=== PATIENT | male | born 1965 | race African-American/Black ===

== ENCOUNTER 2019-07-18 01:55 | Emergency (ER) | payer MEDICAID ==
[~2019-07-18] VITALS: Ht 180.3 cm; Wt 105.0 kg
[2019-07-18] MEDS ORDERED: ACETAMINOPHEN 325MG TABLET PO STA (03:07)
[2019-07-18 03:37] LABS: CLARITY URINE CLEAR (CLEAR); COLOR URINE YELLOW (YELLOW); KETONES URINE NEGATIVE (NEGATIVE); LEUKOCYTE ESTERASE URINE NEGATIVE (NEGATIVE); NITRITE URINE NEGATIVE (NEGATIVE); OCCULT BLOOD URINE NEGATIVE (NEGATIVE); PROTEIN URINE NEGATIVE (NEGATIVE); SPECIFIC GRAVITY URINE 1.003 (1.005-1.030); UROBILINOGEN URINE 0.2 E.U./dL (0.2-1.0)
[2019-07-18 03:39] LABS: CHLORIDE 99 mEq/L (98-107)
[2019-07-18 03:43] LABS: ETHANOL BLOOD 190 mg/dL
[2019-07-18 03:45] LABS: BASOPHILS % 0.7 % (0.0-2.0); EOSINOPHILS % 0.7 % (0.0-5.0); HEMATOCRIT. 39.4 % (42.0-52.0); HEMOGLOBIN. 12.7 g/dL (14.0-18.0); MEAN CORPUSCULAR HEMOGLOBIN 23.5 pg (28.0-32.0); MEAN CORPUSCULAR VOLUME 72.8 fL (80.0-94.0); MEAN PLATELET VOLUME 8.2 fl (7.4-10.4); MONOCYTES % 7.4 % (2.0-8.0); NEUTROPHILS % 65.2 % (40.0-76.0); PLATELET 230 x1000/uL (130-400); RED BLOOD CELL COUNT 5.41 mill/uL (4.7-6.1); RED CELL DISTRIBUTION WIDTH 17.9 % (11.6-14.6)
[2019-07-18 04:05] LABS: *AMPHETAMINES SCREEN URINE PRESUMTIVE POSITIVE (NEGATIVE); *BARBITURATES SCREEN URINE NEGATIVE (NEGATIVE); *BENZODIAZEPINES SCREEN URINE NEGATIVE (NEGATIVE); *COCAINE SCREEN URINE NEGATIVE (NEGATIVE); METHADONE URINE SCREEN NEGATIVE (NEGATIVE)
[2019-07-18 04:06] LABS: CANNABINOID URINE SCREEN NEGATIVE (NEGATIVE); OPIATES URINE SCREEN NEGATIVE (NEGATIVE); PHENCYCLIDINE URINE SCREEN NEGATIVE (NEGATIVE)
[2019-07-18] MEDS ORDERED: IBUPROFEN 600MG TABLET PO STA (05:01)
[2019-07-18] MEDS ORDERED: SODIUM CHLORIDE 0.9% 1,000 ML IV ONE (05:01)
[2019-07-18 06:30] VITALS: BP 168/102
== END 2019-07-18 06:41 | disposition home or self-care (01) ==
LOC: ER 01:55
DX: R51 Headache (principal); T43.625A Adverse effect of amphetamines, initial encounter; R00.0 Tachycardia, unspecified; F10.10 Alcohol abuse, uncomplicated; Y92.89 Other specified places as the place of occurrence of the external cause; Y90.6 Blood alcohol level of 120-199 mg/100 ml
CPT/HCPCS: 36415; 80053; 80305; 80320; 81003; 85025; 93005; 99284; J7030; G0480